=== PATIENT | male | born 1960 | race Caucasian/White ===

== ENCOUNTER 2020-06-14 09:18 | Day surgery (SDC) | payer MEDICAID ==
[2020-06-13 12:31] LABS: COVID AG,FIA SOURCE NASOPHARYNGEAL
[~2020-06-14] VITALS: Ht 167.6 cm; Wt 71.4 kg
[~2020-06-14 09:18] MED LIST: SODIUM CHLORIDE 0.9% 1,000 ML IV ONE
[2020-06-14] MEDS ORDERED: PROPOFOL 1% 20 ML VIAL IVP ONE (09:19)
[2020-06-14] MEDS ORDERED: LIDOCAINE/PF 2% 5 ML VIAL IM ONE (09:19)
[2020-06-14 10:18] LABS: GLUCOMETER DEV NAME(LOC) SDS.; GLUCOSE,POINT OF CARE 118 MG/DL (70-110)
== END 2020-06-14 12:45 | disposition home or self-care (01) ==
LOC: SURGERY 09:18
PROVIDERS: ATTEND Specialist
DX: D64.9 Anemia, unspecified (principal); D12.3 Benign neoplasm of transverse colon; D12.5 Benign neoplasm of sigmoid colon; I85.00 Esophageal varices without bleeding; K63.5 Polyp of colon; K57.30 Diverticulosis of large intestine without perforation or abscess without bleeding; K64.8 Other hemorrhoids; K31.89 Other diseases of stomach and duodenum; K74.60 Unspecified cirrhosis of liver; I10 Essential (primary) hypertension; E66.9 Obesity, unspecified; Z68.25 Body mass index [BMI] 25.0-25.9, adult; Z79.899 Other long term (current) drug therapy; Z20.822 Contact with and (suspected) exposure to COVID-19
CPT/HCPCS: 43239; 45385; 82962; 87426; 88305; 88312; 88313; C9803; J2704; J3490